=== PATIENT | female | born 1945 | race Caucasian/White ===

== ENCOUNTER → 2019-08-10 | Outpatient (REF) | payer BC ==
[~2019-08-10] MED LIST: ATIV0.5T; ENAL20TA; HYDR25TA6; ZEBE5TAB
== END ==
LOC: M LAB REF 12:01
PROVIDERS: ATTEND Internal Medicine
DX: Q78.2 Osteopetrosis (principal)

== ENCOUNTER → 2020-05-10 | Outpatient (CLI) | payer BC ==
--- NOTE | 2020-05-10 11:15 | REP ---
INDICATION: PAIN WITH ROM COMPARISON: None. TECHNIQUE: Internal rotation, external rotation, and Y view. FINDINGS: No acute fracture or dislocation. The acromioclavicular and glenohumeral joints are intact. No periarticular calcifications or degenerative changes are appreciated. Sub acromial space is normal. Surrounding soft tissues are unremarkable. IMPRESSION: Normal age-appropriate right shoulder radiographs. <Electronically signed by Lopez Frazier > 05/10/20 1111
== END ==
LOC: M WUC 10:28
PROVIDERS: ATTEND Internal Medicine
DX: M25.511 Pain in right shoulder (principal)

== ENCOUNTER → 2021-02-06 | Outpatient (REF) | payer BC ==
[2021-02-06 16:44] LABS: CLOSTRIDIUM DIFFICILE PCR NEGATIVE (NEGATIVE)
== END ==
LOC: M LAB REF 15:31
PROVIDERS: ATTEND Internal Medicine
DX: R19.7 Diarrhea, unspecified (principal)

== ENCOUNTER 2021-06-01 17:41 | Emergency (ER) | payer BC ==
[~2021-06-01] VITALS: Ht 165.1 cm; Wt 61.3 kg
[2021-06-01] MEDS ORDERED: GABA-282 PO (17:50)
[2021-06-01] MEDS ORDERED: AMLO1TAB24 PO (17:50)
[2021-06-01] MEDS ORDERED: ENAL20TA11 PO (17:50)
[2021-06-01] MEDS ORDERED: ZOLP10TA2 PO (17:50)
[2021-06-01] MEDS ORDERED: DERMABOND TOPICAL SKIN ADHESIVE TOP ONE (19:20)
[2021-06-01] MEDS ORDERED: BOOSTRIX/ADACEL VACCINE (DIPHTH/PERTUSS/ACELL/TETANUS) 0.5ML SYR IM ONE (19:20)
[2021-06-01] MEDS ORDERED: ACETAMINOPH W/CODEINE #3 TAB UD PO ONE (19:20)
[2021-06-01] MEDS ORDERED: ACET-716 PO (19:37)
[2021-06-01 19:48] VITALS: BP 169/89
== END 2021-06-01 20:04 | disposition home or self-care (01) ==
LOC: M ED 17:41
DX: S01.81XA Laceration without foreign body of other part of head, initial encounter (principal); S42.002A Fracture of unspecified part of left clavicle, initial encounter for closed fracture; W18.39XA Other fall on same level, initial encounter; Y92.480 Sidewalk as the place of occurrence of the external cause; I10 Essential (primary) hypertension; F41.9 Anxiety disorder, unspecified; Z79.899 Other long term (current) drug therapy

== ENCOUNTER → 2021-11-16 | Outpatient (CLI) | payer BC ==
[~2021-11-16] MED LIST changes: +ACET-716 PO; +AMLO1TAB24 PO; +ENAL20TA11 PO; +GABA-282 PO; +ZOLP10TA2 PO
== END ==
LOC: M WUC 10:36
PROVIDERS: ATTEND Internal Medicine
DX: S22.42XA Multiple fractures of ribs, left side, initial encounter for closed fracture (principal); X58.XXXA Exposure to other specified factors, initial encounter; Y92.9 Unspecified place or not applicable; Y93.9 Activity, unspecified; Y99.9 Unspecified external cause status

== ENCOUNTER → 2021-11-20 | Outpatient (CLI) | payer BC | LOC: M WHC 09:01 | PROVIDERS: ATTEND Internal Medicine | DX: M81.0 Age-related osteoporosis without current pathological fracture (principal); M85.88 Other specified disorders of bone density and structure, other site ==

== ENCOUNTER 2022-06-03 13:33 | Emergency (ER) | payer BC ==
[~2022-06-03] VITALS: Ht 162.6 cm; Wt 59.5 kg
[~2022-06-03 13:33] MED LIST changes: +ENAL1TAB52 PO; -ENAL20TA11 PO
[2022-06-03] MEDS ORDERED: TIZA10TA (13:44)
[2022-06-03] MEDS ORDERED: ACET1TAB55 PO (13:44)
[2022-06-03] MEDS ORDERED: ADVITAB PO (13:44)
[2022-06-03 15:12] LABS: BASO % 0.2 % (0.0-1.0); HEMATOCRIT 32.2 % (36.0-47.0); HEMOGLOBIN 10.7 g/dl (12.0-15.5); LYMPH # 0.6 10^3/uL (1.5-5.0); LYMPH % 3.8 % (24.0-44.0); MEAN CORPUSCULAR HEMOGLOBIN 30.7 pg (27.0-33.0); MEAN CORPUSCULAR HGB CONC 33.2 g/dl (32.0-36.5); MEAN CORPUSCULAR VOLUME 92.3 fl (80.0-96.0); MONO # 1.2 10^3/uL (0.0-0.8); MONO % 7.9 % (2.0-8.0); NEUTROPHILS # 13.4 10^3/uL (1.5-8.5); NEUTROPHILS % 87.3 % (36.0-66.0); PLATELET COUNT, AUTOMATED 216 10^3/uL (150-450); RED BLOOD COUNT 3.49 10^6/uL (4.00-5.40); WHITE BLOOD COUNT 15.4 10^3/uL (4.0-10.0)
[2022-06-03 15:44] LABS: ALBUMIN 2.5 G/DL (3.2-5.2); BILIRUBIN,DIRECT 0.1 MG/DL (<0.4); BILIRUBIN,TOTAL 0.2 MG/DL (0.3-1.2); CALCIUM LEVEL 8.7 MG/DL (8.3-10.6); CK-MB VALUE MASS 1.6 NG/ML (<3.6); CREATININE FOR GFR 0.99 MG/DL (0.55-1.30); GLOMERULAR FILTRATION RATE 57.9 (>39); MB/CK RELATIVE INDEX 0.66 (< OR =4); POTASSIUM SERUM 4.3 MMOL/L (3.5-5.1); TOTAL PROTEIN 6.1 G/DL (5.7-8.2)
[2022-06-03 15:48] LABS: THYROID STIMULATING HORMONE 1.716 uIU/ML (0.55-4.78); THYROXINE (T4) 5.9 UG/DL (4.5-10.9)
[2022-06-03] MEDS ORDERED: NS 500 ML IV ONE (15:55)
[2022-06-03] MEDS ORDERED: ISOVUE-370 76% 100ML VIAL As Ordered ONE (16:56)
[2022-06-03] MEDS ORDERED: cefTRIAXone SOD 1 GM in D5W MINI-BAG PLUS 50 ML IV ONE (18:10)
[2022-06-03] MEDS ORDERED: LevoFLOXacin IV 500 MG in IV 1 EA IV ONE (18:25)
[2022-06-03] MEDS ORDERED: LEVO1TAB38 PO (18:33)
[2022-06-03] MEDS ORDERED: PYRI1TAB5 PO (18:34)
[2022-06-03 20:06] VITALS: BP 160/72
== END 2022-06-03 20:32 | disposition home or self-care (01) ==
LOC: M ED 13:33
DX: N10 Acute pyelonephritis (principal); I10 Essential (primary) hypertension; F41.9 Anxiety disorder, unspecified; Z79.899 Other long term (current) drug therapy
CPT/HCPCS: 71045; 74177; 80048; 80076; 81001; 82550; 82553; 83605; 83880; 84436; 84443; 84484; 85025; 87040; 87088; 87186; 87486; 87581; 87633; 87798; 93005; 96365; 96375; 99285; J1956; Q9967

== ENCOUNTER → 2022-06-11 | Outpatient (REF) | payer BC ==
[~2022-06-11] MED LIST changes: +ACET1TAB55 PO; +ADVITAB PO; +LEVO1TAB38 PO; +PYRI1TAB5 PO; +TIZA10TA
[2022-06-11 18:32] LABS: C REACTIVE PROTEIN QUANTITATIV 3.7 MG/DL (<1.0)
[2022-06-11 18:33] LABS: PERCENT SATURATION 24.1 % (13.2-45.0)
[2022-06-11 18:37] LABS: FERRITIN 148.2 NG/ML (7.3-270.7)
== END ==
LOC: M LAB REF 16:42
PROVIDERS: ATTEND Internal Medicine
DX: M25.511 Pain in right shoulder (principal); D64.9 Anemia, unspecified; R19.4 Change in bowel habit

== ENCOUNTER → 2022-08-09 | Outpatient (REF) | payer BC ==
[2022-08-09 16:38] LABS: APPEARANCE, URINE CLEAR (CLEAR); BACTERIA, URINE AUTO NEGATIVE (NEGATIVE); BILIRUBIN, URINE AUTO NEGATIVE (NEGATIVE); BLOOD, URINE BLOOD NEGATIVE (NEGATIVE); COLOR, URINE YELLOW (YELLOW); GLUCOSE, URINE (UA) AUTO NEGATIVE (NEGATIVE); KETONE, URINE AUTO NEGATIVE (NEGATIVE); LEUKOCYTE ESTERASE, URINE AUTO NEGATIVE (NEGATIVE); NITRITE, URINE AUTO NEGATIVE (NEGATIVE); PROTEIN, URINE AUTO NEGATIVE (NEGATIVE); RBC, URINE AUTO 0 /HPF (0-3); SPECIFIC GRAVITY URINE AUTO 1.009 (1.002-1.035); SQUAMOUS EPITHELIAL CELL UR AU 0 /HPF (0-6); UROBILINOGEN, URINE AUTO 0.2 mg/dL (0.0-2.0); WBC, URINE AUTO 1 /HPF (0-3)
[2022-08-09 18:06] LABS: GC DNA AMPLIFICATION NEGATIVE (NEGATIVE)
== END ==
LOC: M LAB REF 16:13
PROVIDERS: ATTEND Physician Assistant Medical
DX: N39.0 Urinary tract infection, site not specified (principal)

== ENCOUNTER 2023-03-02 16:01 | Emergency (ER) | payer BC ==
[~2023-03-02] VITALS: Ht 165.1 cm; Wt 61.5 kg
[2023-03-02] MEDS ORDERED: ASPIRIN 81MG CHEW TABLET PO ONE (16:40)
[2023-03-02 17:00] LABS: BASO % 0.6 % (0.0-1.0); EOS # 0.1 10^3/uL (0.0-0.5); EOS % 1.2 % (0.0-3.0); HEMATOCRIT 39.4 % (36.0-47.0); LYMPH # 1.8 10^3/uL (1.5-5.0); MEAN CORPUSCULAR VOLUME 93.8 fl (80.0-96.0); MONO # 0.3 10^3/uL (0.0-0.8); MONO % 6.4 % (2.0-8.0); NEUTROPHILS % 57.6 % (36.0-66.0); PLATELET COUNT, AUTOMATED 203 10^3/uL (150-450); WHITE BLOOD COUNT 5.2 10^3/uL (4.0-10.0)
[2023-03-02 17:22] LABS: LIPASE 36 U/L (12-53)
[2023-03-02 17:24] LABS: CPK CREATINE PHOSPHOKINASE 112 U/L (34-145)
[2023-03-02 17:25] LABS: ALBUMIN 4.2 G/DL (3.2-5.2); ALKALINE PHOSPHATASE 91 U/L (46-116); ALT/SGPT 10 U/L (7.0-40); AST/SGOT 17 U/L (<34); BILIRUBIN,DIRECT < 0.1 MG/DL (<0.4); BILIRUBIN,TOTAL 0.3 MG/DL (0.3-1.2); BLOOD UREA NITROGEN 17 MG/DL (9-23); CALCIUM LEVEL 9.8 MG/DL (8.3-10.6); CARBON DIOXIDE LEVEL 30 MMOL/L (20-31); CHLORIDE LEVEL 102 MMOL/L (98-107); CK-MB VALUE MASS 1.3 NG/ML (<3.6); CREATININE FOR GFR 0.67 MG/DL (0.55-1.30); GLOMERULAR FILTRATION RATE > 60.0 (>39); GLUCOSE, FASTING 132 MG/DL (74-106); MB/CK RELATIVE INDEX 1.16 (< OR =4); POTASSIUM SERUM 3.7 MMOL/L (3.5-5.1); SODIUM LEVEL 135 MMOL/L (136-145); TOTAL PROTEIN 7.3 G/DL (5.7-8.2)
[2023-03-02 17:27] LABS: THYROID STIMULATING HORMONE 3.137 uIU/ML (0.55-4.78)
[2023-03-02 18:09] LABS: CK-MB VALUE MASS 1.1 NG/ML (<3.6)
[2023-03-02 18:10] LABS: MB/CK RELATIVE INDEX 1.13 (< OR =4)
[2023-03-02] MEDS ORDERED: KETOROLAC 30 MG/ML 1ML VIAL IV ONE (18:20)
[2023-03-02 20:19] LABS: CK-MB VALUE MASS < 1.0 NG/ML (<3.6)
[2023-03-02 20:21] LABS: CPK CREATINE PHOSPHOKINASE 101 U/L (34-145); MB/CK RELATIVE INDEX 0.99 (< OR =4)
[2023-03-02 20:30] VITALS: BP 170/79
[2023-03-02 20:45] VITALS: TEMP 97.4; O2SAT 96
== END 2023-03-02 20:55 | disposition home or self-care (01) ==
LOC: M ED 16:01
DX: R07.9 Chest pain, unspecified (principal); I10 Essential (primary) hypertension; F41.9 Anxiety disorder, unspecified; I49.8 Other specified cardiac arrhythmias; Z79.899 Other long term (current) drug therapy; Z79.1 Long term (current) use of non-steroidal anti-inflammatories (NSAID)
CPT/HCPCS: 71045; 80048; 80076; 82550; 82553; 83690; 83880; 84439; 84443; 84484; 85025; 85379; 93005; 93041; 94760; 96374; 99285; J1885

== ENCOUNTER → 2023-04-23 | Outpatient (REF) | payer BC ==
[2023-04-23 13:47] LABS: APPEARANCE, URINE CLEAR (CLEAR); BACTERIA, URINE AUTO NEGATIVE (NEGATIVE); BILIRUBIN, URINE AUTO NEGATIVE (NEGATIVE); BLOOD, URINE BLOOD NEGATIVE (NEGATIVE); COLOR, URINE YELLOW (YELLOW); GLUCOSE, URINE (UA) AUTO NEGATIVE (NEGATIVE); KETONE, URINE AUTO NEGATIVE (NEGATIVE); LEUKOCYTE ESTERASE, URINE AUTO NEGATIVE (NEGATIVE); NITRITE, URINE AUTO NEGATIVE (NEGATIVE); PROTEIN, URINE AUTO NEGATIVE (NEGATIVE); RBC, URINE AUTO 1 /HPF (0-3); SQUAMOUS EPITHELIAL CELL UR AU 0 /HPF (0-6); UROBILINOGEN, URINE AUTO 0.2 mg/dL (0.0-2.0); WBC, URINE AUTO 0 /HPF (0-3)
== END ==
LOC: M LAB REF 12:59
PROVIDERS: ATTEND Physician Assistant
DX: N39.0 Urinary tract infection, site not specified (principal); B96.20 Unspecified Escherichia coli [E. coli] as the cause of diseases classified elsewhere

== ENCOUNTER → 2023-08-19 | Outpatient (CLI) | payer BC | LOC: M WUC 10:31 | PROVIDERS: ATTEND Internal Medicine | DX: S22.32XA Fracture of one rib, left side, initial encounter for closed fracture (principal); R07.82 Intercostal pain; W19.XXXA Unspecified fall, initial encounter; Y93.9 Activity, unspecified; Y92.9 Unspecified place or not applicable ==

== ENCOUNTER 2024-10-20 14:04 | Emergency (ER) | payer BC ==
[~2024-10-20] VITALS: Ht 162.6 cm; Wt 62.7 kg
[~2024-10-20 14:04] MED LIST changes: +GABA-1172 PO; -GABA-282 PO; +ZOLP10TA11 PO; -ZOLP10TA2 PO
[2024-10-20 17:15] LABS: BASO # 0.0 10^3/uL (0.0-0.2); BASO % 0.2 % (0.0-1.0); EOS # 0.0 10^3/uL (0.0-0.5); EOS % 0.1 % (0.0-3.0); LYMPH # 1.0 10^3/uL (1.5-5.0); LYMPH % 7.5 % (24.0-44.0); MONO # 0.6 10^3/uL (0.0-0.8); MONO % 4.1 % (2.0-8.0); NEUTROPHILS # 12.1 10^3/uL (1.5-8.5); NEUTROPHILS % 87.7 % (36.0-66.0); PLATELET COUNT, AUTOMATED 223 10^3/uL (150-450)
[2024-10-20 17:33] LABS: ALT/SGPT 16 U/L (7.0-40); AST/SGOT 31 U/L (<34); CALCIUM LEVEL 9.3 MG/DL (8.3-10.6); CARBON DIOXIDE LEVEL 28 MMOL/L (20-31); CHLORIDE LEVEL 98 MMOL/L (98-107); CREATININE FOR GFR 0.73 MG/DL (0.55-1.30); GLOMERULAR FILTRATION RATE 83.6 (>39); POTASSIUM SERUM 4.5 MMOL/L (3.5-5.1); SODIUM LEVEL 136 MMOL/L (136-145)
[2024-10-20] MEDS: MORPHINE 4 MG/ML 1 ML VIAL IV PRN (17:34)
[2024-10-20 17:38] LABS: INR 0.94
[2024-10-20] MEDS ORDERED: IBUP-1114 PO (18:16)
[2024-10-20] MEDS ORDERED: ACET-716 PO (18:17)
[2024-10-20] MEDS: KETOROLAC 30 MG/ML 1 ML VIAL IV ONE (18:25)
[2024-10-20 18:41] VITALS: BP 153/65; TEMP 97.9; O2SAT 97
== END 2024-10-20 18:50 | disposition home or self-care (01) ==
LOC: M ED 14:04
DX: S42.222A 2-part displaced fracture of surgical neck of left humerus, initial encounter for closed fracture (principal); M25.412 Effusion, left shoulder; M75.22 Bicipital tendinitis, left shoulder; I25.84 Coronary atherosclerosis due to calcified coronary lesion; M47.812 Spondylosis without myelopathy or radiculopathy, cervical region; Y92.59 Other trade areas as the place of occurrence of the external cause; Y93.9 Activity, unspecified; Y99.9 Unspecified external cause status; W01.198A Fall on same level from slipping, tripping and stumbling with subsequent striking against other object, initial encounter; I10 Essential (primary) hypertension; F41.9 Anxiety disorder, unspecified; Z79.1 Long term (current) use of non-steroidal anti-inflammatories (NSAID); Z79.899 Other long term (current) drug therapy
CPT/HCPCS: 70260; 70450; 70486; 71045; 72125; 73030; 73200; 80048; 80076; 82150; 83605; 83690; 85025; 85610; 85730; 86850; 86900; 86901; 93041; 94760; 96374; 96375; 99285; J1885

== ENCOUNTER → 2024-10-21 | Outpatient (CLI) | payer BC ==
[~2024-10-21] MED LIST changes: +IBUP-1114 PO
== END ==
LOC: M SOG 09:58
PROVIDERS: ATTEND Orthopaedic Surgery
DX: M25.512 Pain in left shoulder (principal); S42.222D 2-part displaced fracture of surgical neck of left humerus, subsequent encounter for fracture with routine healing; X58.XXXD Exposure to other specified factors, subsequent encounter

== ENCOUNTER → 2024-11-05 | Outpatient (CLI) | payer BC | LOC: M SOG 07:19 | PROVIDERS: ATTEND Orthopaedic Surgery | DX: S42.212D Unspecified displaced fracture of surgical neck of left humerus, subsequent encounter for fracture with routine healing (principal) ==

== ENCOUNTER → 2024-12-07 | Outpatient (CLI) | payer BC | LOC: M SOG 07:28 | PROVIDERS: ATTEND Orthopaedic Surgery | DX: S42.212P Unspecified displaced fracture of surgical neck of left humerus, subsequent encounter for fracture with malunion (principal); M25.512 Pain in left shoulder ==

== ENCOUNTER → 2025-01-19 | Outpatient (REF) | payer BC ==
[2025-01-19 12:31] LABS: APPEARANCE, URINE CLEAR (CLEAR); BACTERIA, URINE AUTO NEGATIVE (NEGATIVE); BILIRUBIN, URINE AUTO NEGATIVE (NEGATIVE); BLOOD, URINE BLOOD NEGATIVE (NEGATIVE); GLUCOSE, URINE (UA) AUTO NEGATIVE (NEGATIVE); KETONE, URINE AUTO NEGATIVE (NEGATIVE); LEUKOCYTE ESTERASE, URINE AUTO NEGATIVE (NEGATIVE); NITRITE, URINE AUTO NEGATIVE (NEGATIVE); PROTEIN, URINE AUTO NEGATIVE (NEGATIVE); RBC, URINE AUTO 0 /HPF (0-3); SPECIFIC GRAVITY URINE AUTO 1.010 (1.002-1.035); SQUAMOUS EPITHELIAL CELL UR AU 0 /HPF (0-6); UROBILINOGEN, URINE AUTO 0.2 mg/dL (0.0-2.0); WBC, URINE AUTO 0 /HPF (0-3)
== END ==
LOC: M LAB REF 12:07
PROVIDERS: ATTEND Physician Assistant
DX: N39.0 Urinary tract infection, site not specified (principal)